=== PATIENT | female | born 2000 | race Caucasian/White ===

== ENCOUNTER → 2023-12-10 18:02 | Outpatient (BNVA) | payer OTHER, SELFPAY | PROVIDERS: Visit Provider Registered Nurse Neonatal Intensive Care | DX: S60.221A Contusion of right hand, initial encounter (principal); W19.XXXA Unspecified fall, initial encounter; Y99.0 Civilian activity done for income or pay | CPT/HCPCS: 73130 ==

== ENCOUNTER 2025-09-08 14:43 | Outpatient (CLI) | payer OTHER, SELFPAY ==
--- NOTE | 2025-09-08 14:48 | XR_ITS ---
WS: [id number] Cervical spine, 5 views including both obliques, 09/08/2025 Clinical Data: CHRONIC NECK PAIN Comparison: None. Findings: No compression fractures are seen. The disc heights are normal. There is no prevertebral soft tissue swelling. The odontoid is unremarkable. The soft tissues of the neck and the lung apices are normal. The oblique images show no foraminal encroachment. XR/XR cervical spine 4-5V [id number] Impression: 1. Negative cervical spine. 2. Negative for foraminal encroachment.
== END 2025-09-08 14:44 | disposition home or self-care (01) ==
PROVIDERS: PCP Family Medicine; Visit Provider Family Medicine
DX: M54.2 Cervicalgia (principal); G89.29 Other chronic pain
CPT/HCPCS: 72050